=== PATIENT | female | born 2005 | race Two or more races ===

== ENCOUNTER 2024-06-03 23:18 | Inpatient (IN) | payer MEDICAID, SELFPAY ==
[2024-06-03 23:28] VITALS: BP 126/79; PULSE 64
[2024-06-03] MEDS: Ampicillin Inj 2,000 MG in SODIUM CHLORIDE 0.9% (POP) 100 ML 200 MG IV (23:30)
[2024-06-03 23:39] VITALS: BP 127/78; PULSE 66
[2024-06-03 23:52] VITALS: BP 126/68; PULSE 83
[2024-06-03 23:55] VITALS: BP 107/70; PULSE 73; TEMP 36.3
[2024-06-03 23:57] LABS: Basophils % (Auto) 0 % (0-2.5); Eosinophils # (Auto) 0.1 Thou/mm3 (0.0-0.5); Eosinophils % (Auto) 1 % (0-10); Hematocrit 34.8 % (36.0-46.0); Immature Granulocytes % (Auto) 1 % (0-0); Immature Granulocytes Auto 0.05 Thou/mm3 (0.00-0.00); Lymphocytes # (Auto) 2.5 Thou/mm3 (1.0-4.8); Lymphocytes % (Auto) 24 % (10-50); Mean Corpuscular HGB Conc 34.5 g/dl (31.0-37.0); Mean Corpuscular Hemoglobin 29.8 pg (25.0-35.0); Mean Corpuscular Volume 86 fL (80-100); Monocytes # (Auto) 0.8 Thou/mm3 (0.0-0.8); Monocytes % (Auto) 7 % (0-12); Neutrophils % (Auto) 67 % (37-80); Nucleated Red Blood Cell % 0 /100 WBC (0); Platelet Count 281 Thou/mm3 (140-440); RDW Standard Deviation 47.1 fL (36.4-46.3); Red Blood Count 4.03 Miln/mm3 (4.00-5.20); White Blood Count 10.5 Thou/mm3 (4.5-11.0)
[2024-06-04] VITALS (16 sets, daily range): BP systolic 105–171; BP diastolic 58–79; PULSE 55–73; RESP 16–98; TEMP 36.7–38; O2SAT 97–98; BMI 22.1
--- NOTE | 2024-06-04 00:11 | PD.LDHP ---
Documentation for date of: 06/04/24 OB Labor/Induct. HPI History of Present Illness History of present illness: 18-year-old 2 para 1-0-0-1 at 36 weeks and 0 days came in with contractions and leaking of fluid. Patient had scant care limited to 2 visits did not have any MFM ultrasounds because of transportation issues. Patient denies any problems in this . Previous vaginal delivery at term History of Present Dating criteria: based on LMP only Labs Narrative: NIPT not done Glucose tolerance test passed Meds Home Medications and Allergies Allergies Allergy/AdvReac Type Severity Reaction Status Date / Time No Known Allergies Allergy Verified 06/04/24 00:10 OB Exam Physical Exam Vital signs: Pulse BP 73 107/70 06/03/24 23:55 06/03/24 23:55 Constitutional Constitutional: no acute distress Routine HEENT Exam Head: Present normocephalic and atraumatic Eye: Present EOMI and PERRL ENT: Present mucous membranes moist Routine Neck Exam Neck: Present supple and trachea midline Routine Cardiovascular Exam Cardiovascular: Present RRR Routine Abdominal Exam Abdominal: Present soft and normoactive bowel sounds Comments: Gravid, contractions+ Detailed Labor and Delivery Exam Dilation (cm): Complete Effacement (%): 100% Cervix position: anterior station: +2 Consistency: soft Membranes: ruptured Baseline heart rate: 150 monitor accelerations: 15x15 monitor decelerations: None Comments: Category 1 heart tone Routine Extremities Exam Extremities: Present full ROM Routine Skin Exam Skin: Present intact, dry and warm Routine Neurological Exam Neurological: Present alert, oriented X3 and CN II-XII intact Routine Psychiatric Exam Psychiatric: Present normal affect and normal thought process OB Results Labs 06/03/24 23:40 Labs: Short CBC 06/03/24 Range/Units 23:40 WBC 10.5 (4.5-11.0) Thou/mm3 Hgb 12.0 (12.0-16.0) g/dL Hct 34.8 L (36.0-46.0) % Plt Count 281 (140-440) Thou/mm3 Impressions Impression: 18-year-old 2 para 1-0-0-1 36 weeks per LMP, scant care in active labor, second stage GBS unknown prophylaxis given Cephalic OB Assessment & Plan Additional Plan Additional Plan Comment: Please see vaginal delivery note
[2024-06-04] MEDS: OXYTOCIN in NS 20 units 20 UNIT/1,000 ML BAG 125 UNIT IV (00:20)
[2024-06-04] MEDS: MISOPROSTOL 200 mCg TABLET 800 MCG PR (00:21)
[2024-06-04] MEDS: LIDOCAINE HCL 1% 20 ML VIAL INFL (00:21)
[2024-06-04] MEDS: OXYTOCIN INJ 10 UNIT/ML VIAL IM (00:21)
[2024-06-04 00:34] LABS: Syphilis Nonreactive (Nonreactive)
[2024-06-04] MEDS: BENZO/LANO/ALOE (Dermoplast) 60 GM CAN 1 SPRAY TOP (01:48)
[2024-06-04] MEDS: TRANEXAMIC ACID 1,000 MG IVPB 1,000 MG/100 ML BAG 200 MG IV (01:51)
[2024-06-04] MEDS: ACETAMINOPHEN 325 MG TABLET 650 MG PO (04:31)
[2024-06-04 07:39] LABS: Basophils % (Auto) 0 % (0-2.5); Eosinophils % (Auto) 0 % (0-10); Hemoglobin 10.5 g/dL (12.0-16.0); Immature Granulocytes % (Auto) 1 % (0-0); Immature Granulocytes Auto 0.06 Thou/mm3 (0.00-0.00); Lymphocytes % (Auto) 16 % (10-50); Mean Corpuscular HGB Conc 33.9 g/dl (31.0-37.0); Mean Corpuscular Hemoglobin 29.7 pg (25.0-35.0); Mean Corpuscular Volume 88 fL (80-100); Monocytes # (Auto) 0.9 Thou/mm3 (0.0-0.8); Monocytes % (Auto) 7 % (0-12); Neutrophils # (Auto) 9.7 Thou/mm3 (1.8-7.7); Neutrophils % (Auto) 76 % (37-80); Nucleated Red Blood Cell % 0 /100 WBC (0); Platelet Count 226 Thou/mm3 (140-440); RDW Standard Deviation 47.3 fL (36.4-46.3); Red Blood Count 3.53 Miln/mm3 (4.00-5.20); White Blood Count 12.8 Thou/mm3 (4.5-11.0)
--- NOTE | 2024-06-04 08:24 | PD.LDPPPRG ---
Subjective Subjective Interval history: Patient is a 18-year-old -1-0-2 who delivered right before midnight precipitously at 36-2/7 weeks. Patient is sitting up in bed breast-feeding in no apparent distress. She denies heavy bleeding severe pain or any other problems Exam Vital Signs Temp Pulse Resp BP Pulse Ox O2 Del Method 98.9 F 70 17 108/66 98 Room Air 06/04/24 05:40 06/04/24 04:02 06/04/24 04:02 06/04/24 04:02 06/04/24 04:02 06/04/24 04:02 Narrative Exam Patient denies fevers chills severe pain or heavy bleeding Routine Abdominal Exam Abdominal: Present soft Comments: Abdomen soft nontender fundus firm Objective Labs 06/04/24 07:10 Labs: Laboratory Results - last 24 hr 06/03/24 06/04/24 23:40 07:10 WBC 10.5 12.8 H RBC 4.03 3.53 L Hgb 12.0 10.5 L Hct 34.8 L 31.0 L MCV 86 88 MCH 29.8 29.7 MCHC 34.5 33.9 RDW Std Deviation 47.1 H 47.3 H Plt Count 281 226 D Neut % (Auto) 67 76 Lymph % (Auto) 24 16 [place] % (Auto) 7 7 Eos % (Auto) 1 0 Baso % (Auto) 0 0 Neut # (Auto) 7.0 9.7 H Lymph # (Auto) 2.5 2.0 [place] # (Auto) 0.8 0.9 H Eos # (Auto) 0.1 0.0 Baso # (Auto) 0.0 0.0 Immature Gran # (Auto) 0.05 H 0.06 H Absolute Nucleated RBC 0.00 0.00 Immature Gran % 1 H 1 H Nucleated RBC % 0 0 Syphilis Serology Nonreactive Blood Type O Positive Antibody Screen NEGATIVE Blood Bank Wristband ID Yes Assessment & Plan Problem List (1) care following vaginal delivery: Problem details: Patient is doing very well. Since she delivered very close to midnight we will observe her overnight probable discharge in the morning. Status: Acute Time Spent With Patient Time: Total time spent is greater than 50% in coordination of care (as documented) at patient's floor/unit and/or counseling patient:
--- NOTE | 2024-06-04 10:29 | PC.SS ---
visitor services specialist conducted bedside contact with the patient to address nursing referral indicating patient delivered .? Translation services utilized to assist with discussion.? visitor services specialist introduced self and discussed role.? At bedside with patient was OCHOAKalia Casillaso .? Patient gave permission for FOB to be present during discussion.? Patient resides at home with FOB and 3 year old son.? Infant, Catie; is the patient?s second child.? OB services provided by Dr. Echeverria.? Patient confirms consistent attendance with OB services.? delivered naturally.? Patient plans on combo feeding the infant.? Patient is not receiving WIC, SNAP or TANF.? Patient denies history of alcohol/drug use.? Patient denies CWS intervention.? Patient denies episodes of domestic violence.? Patient denies possessing a history of mental health.? Patient reports not current possession of depression. ?Patient describes JAZMINE Kalia Dorantescio; as involved with the (Catie).? Patient has access to appropriate supplies and equipment.? FOB will provide transportation upon discharge.? Patient describes possessing support system consisting of FOB and extended family. ?visitor services specialist provided information to community resources to included [employer], [facility] and WIC/SNAP/TANF programs. ?No further intervention required at this time, medical social consultant will be available to address any further concerns.? CEMENT HANDLER updated bedside nurse.?
[2024-06-04 14:31] LABS: Amphetamine/Metham Scrn,Ur OB Negative (Negative); Benzoylecgonine Screen, Ur OB Negative (Negative); Opiate Screen,Urine OB Negative (Negative); THC Screen,Urine OB Negative (Negative)
[2024-06-04] MEDS: IBUPROFEN TAB 400 MG TABLET 800 MG PO (20:52)
[2024-06-05 04:43] VITALS: BP 122/73; PULSE 50; RESP 18; TEMP 36.6; O2SAT 99
--- NOTE | 2024-06-05 07:33 | PD.LDPPPRG ---
Subjective Subjective Interval history: Delivery type: Precipitous Patient doing well this morning. No acute complaints. Ambulating, tolerating p.o. and voiding without difficulty. HTN/Pre-Eclampsia screen: No chest pain, shortness of breath, headache, visual changes, epigastric or right upper quadrant pain. Breast-feeding, lochia diminishing. Bowel: Flatus+/ BM+ Exam Vital Signs Temp Pulse Resp BP Pulse Ox O2 Del Method 97.9 F 50 L 18 122/73 99 Room Air 06/05/24 04:43 06/05/24 04:43 06/05/24 04:43 06/05/24 04:43 06/05/24 04:43 06/05/24 04:43 Constitutional Constitutional: no acute distress Routine HEENT Exam Head: Present normocephalic and atraumatic Eye: Present EOMI and PERRL ENT: Present mucous membranes moist Routine Neck Exam Neck: Present supple and trachea midline Routine Respiratory Exam Respiratory: Present chest non-tender, lungs clear, normal breath sounds and no resp distress Routine Cardiovascular Exam Cardiovascular: Present RRR Routine Abdominal Exam Abdominal: Present soft and normoactive bowel sounds Routine Extremities Exam Extremities: Present full ROM Routine Skin Exam Skin: Present intact, dry and warm Routine Neurological Exam Neurological: Present alert, oriented X3 and CN II-XII intact Routine Psychiatric Exam Psychiatric: Present normal affect and normal thought process Objective Labs 06/04/24 07:10 Labs: Laboratory Results - last 24 hr 06/04/24 06/04/24 07:10 14:18 WBC 12.8 H RBC 3.53 L Hgb 10.5 L Hct 31.0 L MCV 88 MCH 29.7 MCHC 33.9 RDW Std Deviation 47.3 H Plt Count 226 D Neut % (Auto) 76 Lymph % (Auto) 16 [place] % (Auto) 7 Eos % (Auto) 0 Baso % (Auto) 0 Neut # (Auto) 9.7 H Lymph # (Auto) 2.0 [place] # (Auto) 0.9 H Eos # (Auto) 0.0 Baso # (Auto) 0.0 Immature Gran # (Auto) 0.06 H Absolute Nucleated RBC 0.00 Immature Gran % 1 H Nucleated RBC % 0 Urine Opiates Screen Negative U Amphetamin/Meth Scrn Negative U Cocaine Metab Screen Negative U Marijuana (THC) Screen Negative Assessment & Plan Problem List (1) care following vaginal delivery: Status: Acute Assessment and plan: 1. Continue routine /post-op care 2. Labs reviewed, cbc appropriate 3. Remove dressing/Platt 4. Encourage to ambulate, shower 5. Encourage PO intake, breast feeding 6. Anticipate discharge home today Time Spent With Patient Time: Total time spent is greater than 50% in coordination of care (as documented) at patient's floor/unit and/or counseling patient:
--- NOTE | 2024-06-05 07:34 | ESDS_ITS ---
DS: Providers Provider Date of admission: 06/03/24 23:31 Primary care physician: Physician No Primary/Family Admitting Provider: Julio Cesar Echeverria MD Attending Provider on Admission: Markie Lynch MD Consults: 06/04/24 00:19 Referral Routine Comment: Attending Provider on DC: Markie Lynch MD Discharging Provider: Markie Lynch MD DS: Diagnosis Discharge Diagnosis (1) care following vaginal delivery: Status: Acute Problem List Completed Was Problem List Reviewed/Reconciled?: Yes Summary/Hosp Course Brief History: 18-year-old 2 para 1-0-0-1 at 36 weeks and 0 days came in with contractions and leaking of fluid. Patient had scant care limited to 2 visits did not have any MFM ultrasounds because of transportation iss ues. Patient denies any problems in this . Previous vaginal delivery at term Time Spent with Patient Time attestation: Total time spent providing and/or coordinating discharge services: Exam Vital Signs Temp Pulse Resp BP Pulse Ox O2 Del Method 97.9 F 50 L 18 122/73 99 Room Air 06/05/24 04:43 06/05/24 04:43 06/05/24 04:43 06/05/24 04:43 06/05/24 04:43 06/05/24 04:43 Discharge Plan Plan Patient Disposition: HOME (Self Care) Patient condition on transfer: Stable Prescriptions/Referrals Referrals: Julio Cesar Echeverria MD [Physician] - No Primary/Family,Physician [Primary Care Provider] - Patient/Caregiver Discharge Instructions Education Materials: After Delivery [place] Concerns, Breast Care After , Nutrition While , Understanding Depression, : Caring for Yourself, Feel Healthy After Print Language: Romansh Stand Alone Forms: [place] Award Info., Patient Portal Info Letter Discharge Order Discharge Orders: Discharge (Routine); Ordered 06/05/24 Ordered By: Markie Lynch Planned Discharge Date 06/05/24
[2024-06-05 08:27] VITALS: BP 115/73; PULSE 65; RESP 18; TEMP 36.8; O2SAT 99
--- NOTE | 2024-06-07 11:02 | PD.LDDELS ---
Data ([place]) Data : 2 Para: 1 Term: 1 : 0 : 0 Delivery Data ([place]) Labor Data ROM Date: 06/03/24 ROM Time: 22:26 Rupture Type: SROM Amniotic Fluid: Clear Delivery Data Labor Onset Stage 1 Date: 06/03/24 Labor Onset Stage 1 Time: 15:00 Labor Onset Stage 2 Date: 06/03/24 Labor Onset Stage 2 Time: 23:21 Delivery Date: 06/03/24 Delivery Time: 23:50 Gestational age (weeks): 36 Placenta Delivery Date: 06/03/24 Placenta Delivery Time: 23:55 Delivered by: Julio Cesar Echeverria Delivery nurse: Angie Luu Other staff at delivery: Nurse Other staff at delivery: Nurse Other staff at delivery: Aditi Charlton Other staff at delivery: Hina Greenwood Delivery Method Delivery: Vaginal Delivery Type: Spontaneous Anesthesia Type Primary Anesthesia: Local Placenta Placenta Delivery: Spontaneous Episiotomy Episiotomy: Mediolateral Perineal repair Sutures used for repair: 3.0 Vicryl EBL Estimated blood loss (ml): 100 [place] Data ([place]) [place] Data Infant Gender: Female Weight Grams: 2685 1 Minute Total: 8 5 Minute Total: 9
== END 2024-06-05 12:30 | disposition home or self-care (01) | DRG 560 ==
LOC: S4SX 23:54 → S4NX 06-04 02:08
PROVIDERS: Admitting Provider Student in an Organized Health Care Education/Training Program; Visit Provider Obstetrics & Gynecology
DX: O62.3 Precipitate labor (principal); Z3A.36 36 weeks gestation of pregnancy; Z59.82 Transportation insecurity; Z37.0 Single live birth
CPT/HCPCS: 36415; 59409; 80307; 83735; 85025; 86780; 86850; 86900; 86901; J0290; J2590; J3490; S0191; A9270